=== PATIENT | female | born 1990 | race Hispanic/Latino ===

== ENCOUNTER 2021-12-04 04:21 | Outpatient (CLI) | payer MEDICAID ==
[2021-12-04] MEDS ORDERED: LACTATED RINGERS 500 ML IV ONE (05:06)
[2021-12-04 05:19] LABS: Bilirubin,Urine NEG (Negative); Blood,Urine SM (Negative); Color,Urine Yellow (Yellow); Protein,Urine <15 mg/dL mg/dL (Negative); RBC,Urine < 1.0 /HPF (0.0-6.0); Urobilinogen,Urine < 2.0 mg/dL (<2.0)
--- NOTE | 2021-12-04 07:48 | Ultrasound Report ---
ULTRASOUND OBSTETRIC LIMITED INDICATION / CLINICAL INFORMATION: cervical length. TECHNIQUE: Transabdominal ultrasound imaging. COMPARISON: None available. FINDINGS: HEART RATE (beats per minute): 150 AMNIOTIC FLUID INDEX (cm) = measure PRESENTATION: Cephalic. ADDITIONAL FINDINGS: The cervix is closed and measures 5.3 cm in length. The placenta appears low-lyi ng with possible marginal previa. IMPRESSION: The cervix measures 5.3 cm in length. Question a marginal placenta previa. Signer Name: Darien Mai Jr, MD Signed: 12/04/2021 7:44 AM Workstation Name: [id number]
[2021-12-04 10:51] VITALS: BP 93/51
== END 2021-12-04 07:48 | disposition home or self-care (01) ==
LOC: TRG 04:21 → APU 04:25 → TRG 07:48
PROVIDERS: ATTEND Obstetrics & Gynecology
DX: O47.03 False labor before 37 completed weeks of gestation, third trimester (principal); O99.333 Smoking (tobacco) complicating pregnancy, third trimester; F17.200 Nicotine dependence, unspecified, uncomplicated; Z3A.20 20 weeks gestation of pregnancy
CPT/HCPCS: 59025; 76815; 81001; J7120; 96360

== ENCOUNTER 2022-02-07 11:48 | Outpatient (CLI) | payer MEDICAID ==
[2022-02-07 12:19] VITALS: BP 102/56
[2022-02-07] MEDS ORDERED: LACTATED RINGERS 500 ML IV ONE (13:35)
--- NOTE | 2022-02-07 16:35 | Ultrasound Report ---
US OB limited INDICATION: r/o placental abruption. TECHNIQUE: COMPARISON: None available. FINDINGS: There is no lifting or separation of the placenta. position is cephalic. Placenta is fundal and grade 0. heart rate measures 1 27 bpm. Signer Name: Corwin England MD Signed: 02/07/2022 4:31 PM Workstation Name: [id number]
== END 2022-02-07 13:55 | disposition home or self-care (01) ==
LOC: TRG 11:48 → APU 11:49 → TRG 13:55
PROVIDERS: ATTEND Obstetrics & Gynecology
DX: Z34.93 Encounter for supervision of normal pregnancy, unspecified, third trimester (principal); Z3A.30 30 weeks gestation of pregnancy
CPT/HCPCS: 59025; 76815

== ENCOUNTER 2022-02-22 21:12 | Outpatient (CLI) | payer MEDICAID ==
[2022-02-22] MEDS ORDERED: LACTATED RINGERS 1,000 ML ONE (22:27)
[2022-02-22] MEDS ORDERED: LACTATED RINGERS 500 ML IV ONE (22:31)
[2022-02-22 23:24] VITALS: BP 104/55
[2022-02-22 23:30] LABS: Bilirubin,Urine NEG (Negative); Blood,Urine NEG (Negative); Color,Urine Straw (Yellow); Protein,Urine <15 mg/dL mg/dL (Negative); Urobilinogen,Urine < 2.0 mg/dL (<2.0); WBC,Urine < 1.0 /HPF (0.0-6.0)
[2022-02-22 23:32] LABS: RBC,Urine < 1.0 /HPF (0.0-6.0)
== END 2022-02-23 00:02 | disposition home or self-care (01) ==
LOC: TRG 21:12 → APU 21:18 → TRG 02-23 00:02
PROVIDERS: ATTEND Obstetrics & Gynecology
DX: O62.9 Abnormality of forces of labor, unspecified (principal); Z3A.31 31 weeks gestation of pregnancy; Z87.891 Personal history of nicotine dependence
CPT/HCPCS: 59025; 81001; 96360; J7120

== ENCOUNTER 2022-04-14 19:26 | Inpatient (IN) | payer MEDICAID ==
[2022-04-14] MEDS ORDERED: LACTATED RINGERS 1,000 ML ONE (20:27)
[2022-04-14] MEDS ORDERED: BICITRA ORAL LIQD 30ML PO ONE (21:56)
[2022-04-14] MEDS ORDERED: FAMOTIDINE 20 MG/2 ML INJ IV ONE (21:56)
[2022-04-14] MEDS ORDERED: METOCLOPRAMIDE 10 MG/2 ML INJ IV ONE (21:56)
[2022-04-14] MEDS ORDERED: PROMETHAZINE 25 MG TAB PO PRN (21:58)
[2022-04-14] MEDS ORDERED: BUTORPHANOL 2 MG/1 ML INJ IV PRN (21:58)
[2022-04-14] MEDS ORDERED: OXYTOCIN DRIP 30 UNITS/500 ML BAG IV SCH (22:00)
--- NOTE | 2022-04-14 22:14 | Event Note ---
Date: 04/14/22 31 y/o presented to triage with painful ctx @ 39+ weeks, she is previous c/s and scheduled for a repeat c/s with salpingectomy Saturday. SVE is closed, pt given IVF bolus. Ctx pattern unchanged after IVF hydration. Dr. Thomas consulted, d/t staffing, will plan on c/s in AM. pre-op orders in EMR, orders given for pain medication. RN to call provider if pt has any changes in status.
[2022-04-14] MEDS: LACTATED RINGERS 1,000 ML IV SCH ×2 (23:24→23:58)
[2022-04-14 23:30] LABS: Basophils # (Auto) 0.1 K/mm3 (0.0-0.1); Basophils % (Auto) 0.7 % (0.0-1.8); Eosinophils % (Auto) 0.4 % (0.0-4.3); Hematocrit 34.5 % (30.3-42.9); Hemoglobin 11.2 gm/dl (10.1-14.3); Lymphocytes # (Auto) 2.4 K/mm3 (1.2-5.4); Lymphocytes % (Auto) 19.9 % (13.4-35.0); Mean Corpuscular HGB Conc 33 % (30-34); Mean Corpuscular Volume 91 fl (79-97); Monocytes # (Auto) 0.9 K/mm3 (0.0-0.8); Monocytes % (Auto) 7.3 % (0.0-7.3); Platelet Count 376 K/mm3 (140-440); Red Blood Count 3.81 M/mm3 (3.65-5.03); Red Cell Distribution Width 14.1 % (13.2-15.2)
[2022-04-14] MEDS ORDERED: ePHEDrine SULFATE 50 MG/1 ML INJ IV PRN (23:48)
[2022-04-14] MEDS ORDERED: fentaNYL-BUPIV 2 MCG/ML-0.125% 200 MCG/100 ML BAG EPIDURAL SCH (23:48)
[2022-04-14] MEDS ORDERED: ePHEDrine SULFATE 50 MG/1 ML INJ ONE (23:48)
[2022-04-14] MEDS ORDERED: NALOXONE 0.4 MG/1 ML INJ IV PRN (23:48)
[2022-04-14] MEDS ORDERED: BUPIVACAINE/PF (0.5%) 5 MG/1 ML 10 ML VIAL INFILTRATI ONE (23:53)
--- NOTE | 2022-04-15 00:23 | Anesthesia Day of Surgery ---
Anesthesia Day of Surgery - Day of Surgery Patient Examined: Yes Patient H&P Reviewed: Yes Patient is NPO: Yes Beta Blockers: No Cardiac Clearance: No Pulmonary Clearance: No Joe's Test: N/A
--- NOTE | 2022-04-15 00:23 | Anesthesia Consultation ---
Anesthesia Consult and Med Hx Date of service: 04/14/22 - Airway Anesthetic Teeth Evaluation: Good ROM Head & Neck: Adequate Mental/Hyoid Distance: Adequate Mallampati Class: Class II Intubation Access Assessment: Probably Good - Pulmonary Exam CTA: Yes - Cardiac Exam Cardiac Exam: RRR - Pre-Operative Health Status ASA Pre-Surgery Classification: ASA2 Proposed Anesthetic Plan: Epidural Nerve Block: Dion Tap - Pulmonary Hx Smoking: Yes (Quit 2 weeks ago) Hx Asthma: Yes (As a child) Hx Respiratory Symptoms: No SOB: No COPD: No Home Oxygen Therapy: No Hx Pneumonia: No Hx Sleep Apnea: No - Cardiovascular System Hx Hypertension: No Hx Coronary Artery Disease: No Hx Heart Attack/AMI: No Hx Angina: No Hx Percutaneous Transluminal Coronary Angioplasty (PTCA): No Hx Cardia Arrhythmia: No Hx Pacemaker: No Hx Internal Defibrillator: No Hx Valvular Heart Disease: No Hx Heart Murmur: No Hx Peripheral Vascular Disease: No - Central Nervous System Hx Neuromuscular Disorder: No Hx Seizures: Yes (Possible sz in 2011 but never confirmed) CVA: No Hx Back Pain: No Hx Psychiatric Problems: Yes (PTSD, Borderline Personality Disorder) - Gastrointestinal Hx Ulcer: No Hx Gastroesophageal Reflux Disease: No - Endocrine Hx Renal Disease: No Hx End Stage Renal Disease: No Hx Cirrhosis: No Hx Liver Disease: No Hx Insulin Dependent Diabetes: No Hx Non-Insulin Dependent Diabetes: No Hx Thyroid Disease: No Hx Hypothyroidism: No Hx Hyperthyroidism: No - Hematic Hx Anemia: Yes (Resolved) Hx Sickle Cell Disease: No - Other Systems Hx Alcohol Use: No Hx Substance Use: No Hx Cancer: No Hx Obesity: No
--- NOTE | 2022-04-15 00:24 | Progress Note ---
Labor Epidural - Labor Epidural Start Time: 00:00 Stop Time: 00:08 Performed by:: PADMA VILLAFUERTE Procedure: Epidural Requested for Labor Pain and for pending C/S in the AM. H&P and PT Chart reviewed and consent obtained. Time out performed and the procedure was explained, all questions answered. Patient was placed in a sitting position with monitors applied. The PTs back was prepped and draped in usual sterile fashion. The Skin was localized with 3 mL of 1% lidocaine at L3-L4. A 17-gauge Touhy epidural needle was advanced to BISHOP with saline at 7 cm and no blood/CSF was noted via epidural needle. Epidural catheter was advanced to 12 cm. There was negative aspiration for blood and CSF in the catheter and negative response to a test dose of 3 ml 1.5% lidocaine w/ Epi and a sterile dressing was applied Patient tolerated the procedure well and there were no immediate complications noted.
[2022-04-15] MEDS ORDERED: BICITRA ORAL LIQD 30ML ONE (07:32)
[2022-04-15] MEDS ORDERED: FAMOTIDINE 20 MG/2 ML INJ IV ONE (07:33)
[2022-04-15] MEDS ORDERED: METOCLOPRAMIDE 10 MG/2 ML INJ ONE (07:33)
[2022-04-15] MEDS ORDERED: ceFAZolin/Water 2 GM/20 ML 2 GM/20 ML SYRINGE IV ONE (07:54)
--- NOTE | 2022-04-15 08:12 | History and Physical Report ---
History of Present Illness Date of examination: 04/12/22 History of present illness: Pt presents for preop for repeat c/s with salpingectomy. All risk, benefits and alternatives were d/w pt and questions were addressed and answered. Consents signed and placed on the chart. Pt has been complicated by h/o PVCs. She has seen cardiology and was stated on labetalol 100mg prn symptoms as per pt. Pt has not had any symptoms and has not been taking the labetalol. She griffith have f/u apt scheduled post delivery. She was cleared from a cardiac standpoint as per last notes from cardiology. she also has h/o anxiety but has not been on any meds this . Menstrual History Regularity: regular Menses every: 24 days Duration: 3 LMP: 07/15/2021 LMP reliability: definite LMP character: normal test type: urine test Date: 08/23/2021 BC at conception: none Planned ? no EDC Calculations LMP: 04/21/2022 Past History : 3 Term Births: 2 Premature Births: 0 Living Children: 2 Para: 2 Mult. Births: 0 Prev : 2 Aborta: 0 Elect. Ab: 0 Spont. Ab: 0 Ectopics: 0 # 1 Delivery date: 2006 Weeks Gestation: 39 labor: no Delivery type: Hours of labor: 24+ Anesthesia type: epidural Delivery location: [place] Sex: Male weight: 7-9 Comments: Infant in NICU d/t respiratory distress. # 2 Delivery date: 2010 Weeks Gestation: 39 Delivery type: Anesthesia type: epidural Delivery location: [facility] Sex: Female weight: 6-9 Comments: Scheduled rpt Past Medical History: Reviewed and updated today: Arrhythmia Depression Past Surgical History: Reviewed and updated today: negative Family History Summary: Sister - Has Family History of Coronary Heart Disease - Entered On: 08/23/2021 Social History: Patient is single Smoking History: Patient currently smokes every day. Patient has been counseled to quit. 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 % Sun Exposure: occasionally Family History Risk Factors: Family History of MN in 1 Female Relative Age < 65: no Family History of MN in 1 Male Relative Age < 55: no No Dietary Counseling Reason: pn yes Past Medical History Anesthesia Complications: negative Anemia: negative Autoimmune Disorder: negative Bleeding Disorder: negative Blood Transfusions: negative Breast Disease: negative Diabetes: negative Heart Disease: negative Hypertension: negative Hepatitis/Liver Disease: negative Kidney Disease/UTI: negative Neurologic/Epilepsy/Migraines: negative Phlebitis/Varicosities: negative Psychiatric: negative Pulmonary Disease/Asthma: negative Thyroid Disease: negative Hospitalizations: negative Surgery (Non-trust clerk): negative Abnormal PAP: positive NICOLLE Exposure: negative Infertility: negative Uterine Anomaly: negative Uterine Surgery (not C/S): negative Other Gynecologic Problems: negative Social Hx: Patient is single Smoking History: Patient currently smokes every day. Patient has been counseled to quit. Infection History Hx of STD: HPV HIV Risk Eval: no Hepatitis B Risk Eval: low risk Personal hx. of genital herpes: no Partner hx. of genital herpes: no Rash, Viral, or Febrile illness since last LMP? no Varicella/Chicken Pox Status: Previous Disease TB Risk: no Genetic History Congenital Heart Defect: Mom: no Dad: no Parevz Disease: Mom: no Dad: no Thalassemia Mom: no Dad: no Neural Tube Defect Mom: no Dad: no Down's Syndrome Mom: no Dad: no Da-Sachs Mom: no Dad: no Sickle Cell Disease/Trait Mom: no Dad: no Hemophilia Mom: no Dad: no Muscular Dystrophy Mom: no Dad: no Cystic Fibrosis Mom: no Dad: no [place] Chorea Mom: no Dad: no Mental Retardation Mom: no Dad: no Fragile X Mom: no Dad: no Other Genetic/Chromosomal Disorder Mom: no Dad: no Child w/other defect Mom: no Dad: no Enviromental Exposures Xray Exposure: no Medication, drug, or alcohol use since LMP: no Chemical/Other Exposure: no Exposure to Cat Liter: yes Hx of Parvovirus (Fifth Disease): no Occupational Exposure to Children: none Active Medications (reviewed today): ondansetron 8 mg tablet,disintegrating (ondansetron) 1 tablet by mouth every twelve hours vit-iron fum-folic ac 28 mg iron- 800 mcg tablet ( vit-iron fum-folic ac) 1 tablet by mouth once a day Current Allergies (reviewed today): No known allergies Past History Past Medical History: other (see hpi) Past Surgical History: other (see hpi) L D RN History: other (see hpi) Family/Genetic History: other (see hpi) Social history: other (see hpi) - Obstetrical History Expected Date of Delivery: 04/21/22 Actual Gestation: 38 Week(s) 5 Day(s) : 3 Para: 2 Number of Living Children: 2 Medications and Allergies Allergies Allergy/AdvReac Type Severity Reaction Status Date / Time No Known Allergies Allergy Verified 12/04/21 05:13 Home Medications Medication Instructions Recorded Confirmed Last Taken Type Vit-Fe Fumar-FA [ 1 tab PO QDAY 04/11/22 04/11/22 Unknown History Vitamin] Saccharomyces Boulardii [Daily 250 mg PO DAILY 04/11/22 04/11/22 Unknown History Probiotic] - Physical Exam Cardiovascular: Normal S1, Normal S2 Abdomen: Positive: normal appearance, soft. Negative: distention, tenderness, guarding Genitourinary (Female): Positive: normal external genitalia, normal perenium. Negative: perineal/vulvar lesions Deep Tendon Reflex Grade: Normal +2 - Obstetrical FHR: auscultation normal Cervical Dilatation: 0 Cervical Effacement Percentage: 40 station: -3 Uterine Contraction Pattern: irregular All other labs normal. Assessment and Plan - Patient Problems (1) Previous delivery affecting Status: Acute Plan to address problem: -admit for c/s with salpigectomy -consents signed and place on the chart -all risk, benefits and alternatives d/w pt and questions addressed and answered. (2) Admission for sterilization Status: Acute Past History Past Medical History: other (SEE HPI) Past Surgical History: section, other (SEE HPI) L D RN History: other (SEE HPI) Family/Genetic History: other (SEE HPI) Social history: full code, other (SEE HPI) - Obstetrical History Expected Date of Delivery: 04/12/22 Actual Gestation: 40 Week(s) 3 Day(s) : 3 Para: 2 Hx # Term Pregnancies: 2 Number of Pregnancies: 0 Spontaneous Abortions: 0 Induced : 0 Number of Living Children: 2 Medications and Allergies Allergies Allergy/AdvReac Type Severity Reaction Status Date / Time No Known Allergies Allergy Verified 12/04/21 05:13 Home Medications Medication Instructions Recorded Confirmed Last Taken Type Vit-Fe Fumar-FA [ 1 tab PO QDAY 04/11/22 04/11/22 Unknown History Vitamin] Saccharomyces Boulardii [Daily 250 mg PO DAILY 04/11/22 04/11/22 Unknown History Probiotic] Active Meds: Active Medications Ephedrine Sulfate (Ephedrine Sulfate 50 Mg/1 Ml Inj) 10 mg IV Q2M PRN PRN Reason: Hypotension Lactated Ringer's (Lactated Ringers) 1,000 mls @ 2,250 mls/hr IV PREOP HAYLEY Stop: 04/15/22 22:27 Last Admin: 04/14/22 23:58 Dose: 2,250 mls/hr Oxytocin/Sodium Chloride (Pitocin/Ns 30 Unit/500ml) 30 units in 500 mls @ 0 mls/hr IV TITR HAYLEY; Protocol Fentanyl/Bupivacaine/Sodium Chlor (Fentanyl-Bupiv 2 Mcg/Ml-0.125%) 200 mcg in 100 mls @ 12 mls/hr EPIDURAL TITR HAYLEY; Protocol Last Admin: 04/15/22 00:56 Dose: 12 mls/hr Cefazolin Sodium 2 gm/ Sodium (Chloride) 100 mls @ 200 mls/hr IV ONCE ONE; Protocol Stop: 04/15/22 08:29 Naloxone HCl (Naloxone 0.4 Mg/1 Ml Inj) 0.2 mg IV Q5MIN PRN PRN Reason: Respiratory sedation Promethazine HCl (Promethazine 25 Mg Tab) 25 mg PO Q6H PRN PRN Reason: Nausea And Vomiting - Vital Signs Vital signs: Vital Signs Pulse BP Pulse Ox 93 H 108/56 98 04/14/22 19:44 04/14/22 19:44 04/14/22 19:44 Temp Pulse Resp BP Pulse Ox 98.0 F 121 H 18 92/55 97 04/14/22 23:31 04/15/22 08:02 04/14/22 23:31 04/15/22 07:37 04/15/22 08:02 - Physical Exam Breasts: Cardiovascular: Regular rate, Normal S1, Normal S2 Abdomen: Positive: normal appearance, soft, normal bowel sounds. Negative: distention, tenderness Vulva: both: normal Vagina: Positive: normal moisture. Negative: discharge Cervix: Negative: lesion, discharge Uterus: Positive: normal size, normal contour Adnexa: both: normal Anus/Rectum: Positive: normal perianal skin, heme negative. Negative: rectal mass, hemorrhoids Extremities: Deep Tendon Reflex Grade: Normal +2 - Obstetrical FHR: category 1 Cervical Dilatation: 0 (Per RN) Results Result Diagrams: 04/14/22 23:00 Abnormal lab results 04/14/22 Range/Units 23:00 WBC 12.1 H (4.5-11.0) K/mm3 Prentiss # (Auto) 0.9 H (0.0-0.8) K/mm3 Seg Neutrophils % 71.7 H (40.0-70.0) % Seg Neutrophils # 8.7 H (1.8-7.7) K/mm3 All other labs normal. Assessment and Plan - Patient Problems (1) 39 weeks gestation of Current Visit: Yes Status: Acute (2) Admission for sterilization Current Visit: No Status: Acute Plan to address problem: Patient desires permanent sterilization. She declined temporary contraceptives. She understands the risks of the surgery include bleeding infection possible damage to bowel bladder or ureters. She understands that this surgery would make her permanently sterile. She also understands the approximate 1% failure rate. The patient understands all the above and desires to proceed. (3) Previous delivery affecting Current Visit: No Status: Acute Plan to address problem: Plan to address problem: -admit for c/s with salpigectomy -consents signed and place on the chart -all risk, benefits and alternatives d/w pt and questions addressed and answ ered.
[2022-04-15] MEDS ORDERED: WATER FOR IRRIG STERILE 1,500 ML BOTTLE IR ONE (08:28)
[2022-04-15] MEDS ORDERED: SODIUM CHLORIDE 0.9% IRR 1,500 ML BOTTLE IR ONE (08:28)
[2022-04-15] MEDS ORDERED: ceFAZolin/Water 2 GM/20 ML 2 GM/20 ML SYRINGE IV SCH (09:00)
[2022-04-15] MEDS ORDERED: BUTORPHANOL 2 MG/1 ML INJ IV PRN (09:06)
[2022-04-15] MEDS ORDERED: fentaNYL 100 MCG/2 ML INJ IV PRN (09:06)
[2022-04-15] MEDS ORDERED: ACETAMINOPHEN 325 MG TAB PO PRN (09:06)
[2022-04-15] MEDS ORDERED: PROMETHAZINE 25 MG TAB PO PRN (09:51)
[2022-04-15] MEDS ORDERED: MORPHINE 4 MG/1 ML INJ IV PRN (09:51)
[2022-04-15] MEDS ORDERED: PROMETHAZINE 25 MG RECT SUPP PR PRN (09:51)
[2022-04-15] MEDS ORDERED: ONDANSETRON 4 MG/2 ML INJ IV PRN ×2 (09:51→11:55)
[2022-04-15] MEDS ORDERED: HYDROmorphone 1 MG/1 ML INJ IV PRN ×2 (09:51)
[2022-04-15] MEDS ORDERED: NALOXONE 0.4 MG/1 ML INJ IV PRN ×2 (09:51→11:55)
[2022-04-15] MEDS ORDERED: fentaNYL-BUPIV 2 MCG/ML-0.125% 200 MCG/100 ML BAG EPIDURAL SCH (10:00)
--- NOTE | 2022-04-15 10:01 | Progress Note ---
Regional Anesthesia Block - Regional Anesthesia Block Start Time: :36 Stop Time: :43 Performed By:: PADMA VILLAFUERTE Procedure: During the pre-op interview the patient agreed to and signed a consent for a TAP block for post surgical pain management. After her C/S was completed a time out was performed prior to the start of the procedure. The Trans Abdominal Plane was identified bilaterally via ultrasound. The skin was prepped bilaterally with chlorhexidine and a 22g stimuplex needle was advanced to the area between the internal oblique muscle and the trans abdominal plane. Marcaine 0.25% 30mlwas injected under ultrasound guidance on the left and right side. Negative aspiration every 5mL, There was no change in the patients heart rate or rhythm and the patient tolerated the procedure well. No apparent complications were observed.
--- NOTE | 2022-04-15 10:40 | Operative Report ---
Operative Report Operative Report: Date of procedure: April 15, 2022 Pre-operative diagnosis: Intrauterine at 39 weeks with 2 previous section with persistent contractions and desires permanent sterilization Post-operative diagnosis: Same plus pelvic adhesive disease Procedure name(s): Repeat low transverse section with lysis of adhesions Surgeon: Tato Thomas MD Logging Crew Foreman: Ana Lisa CST Anesthesia: Epidural EBL: Quantitative blood loss 402 cc Complications: None Findings: Patient with thick adhesions between the anterior abdominal wall and anterior uterus. I was unable to visualize the patient's fallopian tubes. Therefore the tubal ligation could not be performed. Patient had a male infant weight 7 pounds 14 ounces Apgars 8 at 1 minute and 9 at 5 minutes. Specimen(s): None Procedure: The patient was brought to the operating room. Her epidural was dosed. She was then placed in left lateral tilt. Prepped and draped in the usual sterile manner. After testing for adequate anesthesia level, a Pfannenstiel incision was made through her previous scar. This incision was taken down to the fascia. The fascia was then nicked in the midline. This incision was extended out laterally with Miles scissors. The fascia was then sharply and bluntly from the underlying rectus muscles. The rectus muscles were densely adhesed to the anterior uterus. The peritoneum was then entered. This incision was spread vertically with care not to damage the bladder below. The bladder flap was then formed sharply and bluntly with Metzenbaum scissors. Bladder blade was placed to displace the bladder. Retractor was placed cephalad but could only expose the lower uterine segment uterus because of the adhesions. A transverse incision was made in lower uterine segment. This incision was extended laterally with the operators fingers. The amniotic sac was then entered bluntly with the rotary swaging machine operator's fingers. The infant was delivered from the vertex position with the assistance of vacuum due to the tight fascial opening. Bulb suction on the mother's abdomen. Cord was double clamped and cut. The infant was then passed to the nursery personnel who were in attendance. The above scores were given by the nursery personnel. The placenta was then bluntly removed. The uterus could not be externalized due to the thick adhesions. The uterus was wiped clean the remaining products. The uterine incision was closed in layers. The first incision was closed in a locking manner using 0 Vicryl. This was followed by imbricating stitch also with 0 Vicryl. This closure was hemostatic. The bladder flap was copiously irrigated and found to be hemostatic. The pelvis was copiously irrigated and found to be hemostatic. The uterus was inspected but could not visualize the fundus nor the fallopian tubes due to the thickened adhesions and made decision not to attempt tubal ligation. Uterine closure inspected. Surgicel was placed along the uterine closure prevent postoperative bleeding. The retractors were removed. The rectus muscles were inspected and found to be hemostatic. The fascia was then closed in a running manner using 0 Vicryl. This incision was hemostatic irrigation Bovie. The skin was reapproximated with 4-0 Vicryl subcuticularly. The patient tolerated procedure well. Her urine was clear. The infant was admitted to the well baby nursery. The patient was accompanied to recovery room in good condition. Instrument count correct x3.
[2022-04-15] MEDS ORDERED: D5W/LACTATED RINGERS 1,000 ML IV SCH (11:55)
[2022-04-15] MEDS ORDERED: MAGNESIUM HYDROXIDE (MOM) ORAL LIQD UDC PO PRN (11:55)
[2022-04-15] MEDS ORDERED: WITCH HAZEL/ GLYCERIN PAD TP PRN (11:55)
[2022-04-15] MEDS ORDERED: SIMETHICONE 80 MG CHEW TAB PO PRN (11:55)
[2022-04-15] MEDS ORDERED: OXYTOCIN DRIP 30 UNITS/500 ML BAG IV SCH (11:55)
[2022-04-15] MEDS ORDERED: LANOLIN/ZINC/DIMETHICONE (LANSINOH) 7 GM TP PRN (11:55)
[2022-04-15] MEDS: KETOROLAC 30 MG/1 ML INJ IV PRN ×2 (12:24→17:15)
[2022-04-15] MEDS: ceFAZolin/NS 1 GM/50 ML 1 GM/50 ML BAG IV SCH ×2 (12:27→19:44)
[2022-04-15] MEDS: oxyCODONE /ACETAMINOPHEN 5-325MG TAB PO PRN ×2 (12:46→21:28)
[2022-04-16] MEDS: KETOROLAC 30 MG/1 ML INJ IV PRN (00:20)
--- NOTE | 2022-04-16 00:41 | Post Anesthesia Evaluation ---
- Post Anesthesia Evaluation Patient Participated: Yes Airway Patent: Yes Stable Respiratory Function: Yes Nausea/Vomiting: No Temp > 96.8F: Yes Pain Manageable: Yes Adequeate Hydration: Yes Anesthesia Complications: No Block Receding Appropriately: Yes Patient on Ventilator: No
[2022-04-16 01:09] LABS: Hematocrit 31.1 % (30.3-42.9)
[2022-04-16] MEDS: oxyCODONE /ACETAMINOPHEN 5-325MG TAB PO PRN ×2 (03:33→11:24)
[2022-04-16] MEDS: IBUPROFEN 600 MG TAB PO PRN ×2 (05:56→16:13)
--- NOTE | 2022-04-16 08:43 | Progress Note ---
Assessment and Plan - Patient Problems (1) delivery delivered Current Visit: Yes Status: Acute Plan to address problem: Continue with care. Continue to encourage ambulation. Advance diet as tolerated. Anticipate discharge home on 04/17. Subjective - Subjective Date of service: 04/16/22 Principal diagnosis: s/p rpt @ term Patient reports: appetite normal, voiding normally, pain well controlled, flatus, ambulating normally [place]: doing well Objective - Vital Signs Latest vital signs: Vital Signs Temp Pulse Resp BP BP Pulse Ox Pulse Ox 04/16/22 07:18 97.8 F 96 H 20 98/60 97 04/16/22 06:56 18 04/16/22 05:56 18 04/16/22 05:03 98.0 F 83 18 93/56 97 04/16/22 04:33 18 04/16/22 03:33 20 04/16/22 00:50 18 04/16/22 00:38 98.5 F 93 H 18 97/65 97 04/16/22 00:20 18 04/15/22 22:28 18 04/15/22 21:28 20 04/15/22 20:36 98.6 F 84 20 92/53 96 04/15/22 20:00 100 04/15/22 16:56 98.1 F 84 18 107/68 97 04/15/22 13:10 98 04/15/22 11:50 98.6 F 99 H 16 96/54 98 04/15/22 10:46 101 H 23 98/53 98 04/15/22 10:30 103 H 11 L 94/59 98 04/15/22 10:15 101 H 13 93/62 99 04/15/22 10:00 105 H 14 100/63 100 04/15/22 09:55 107 H 14 106/58 100 04/15/22 09:50 96 H 22 103/64 100 04/15/22 09:46 98.6 F 85 104/63 100 Intake and Output 04/15/22 04/16/22 04/16/22 22:59 06:59 14:59 Intake Total 1320 240 Output Total 1600 900 Balance -280 -660 Intake: Oral 600 Intake, Free Water 720 240 Output: Urine 1600 900 Indwelling Catheter 1600 Void 900 Other: Total, Intake Amount 240 Total, Output Amount 400 400 # Voids Void 1 - Exam Cardiovascular: Present: Normal S1, Normal S2 Lungs: Present: Clear to auscultation Abdomen: Present: normal appearance, soft, normal bowel sounds Vulva: both: normal Uterus: Present: normal, firm, other (light lochia rubra ) Extremities: Present: normal Incision: Present: normal, dry, intact, other (No s/sx of infection noted. ) - Labs Labs: Abnormal lab results 04/15/22 Range/Units 23:41 Hgb 10.0 L (10.1-14.3) gm/dl
[2022-04-16] MEDS ORDERED: FERROUS SULFATE 325 MG TAB PO SCH (10:00)
[2022-04-16] MEDS ORDERED: PRENATAL VIT27-FE FUMARATE-FOLIC ACID VIT TAB PO SCH (10:00)
[2022-04-17] MEDS: oxyCODONE /ACETAMINOPHEN 5-325MG TAB PO PRN ×2 (01:30→09:44)
[2022-04-17 08:23] VITALS: BP 94/65
--- NOTE | 2022-04-17 08:41 | Discharge Summary ---
Providers - Providers Date of Admission: 04/15/22 09:25 Date of discharge: 04/17/22 Attending physician: PRIYANKA DAS 04/15/22 11:55 Consult to Fusing Machine Feeder [CONS] Routine Reason For Exam: Primary care physician: PRIYANKA DAS Hospitalization Reason for admission: repeat c/s, in labor Condition: Good Pertinent studies: postop H&H 10.0/31.1 Procedures: repeat c/s Hospital course: uncomplicated c/s and postop course Disposition: 01 HOME / SELF CARE / HOMELESS Final Discharge Diagnosis (Prints w/discharge instructions): postop c/s Time spent for discharge: 20 - Discharge Diagnoses (1) delivery delivered Status: Acute Core Measure Documentation - Palliative Care Palliative Care/ Comfort Measures: Not Applicable - Core Measures Any of the following diagnoses?: none Exam - Constitutional Vitals: Temp Pulse Resp BP Pulse Ox 97.8 F 76 20 94/65 98 04/17/22 07:22 04/17/22 07:22 04/17/22 07:22 04/17/22 07:22 04/17/22 08:00 General appearance: Present: no acute distress, well-nourished - EENT Eyes: Present: PERRL ENT: hearing intact, clear oral mucosa - Neck Neck: Present: supple, normal ROM - Respiratory Respiratory effort: normal Respiratory: bilateral: CTA - Cardiovascular Rhythm: regular Heart Sounds: Absent: rub, click - Extremities Extremities: No edema Peripheral Pulses: within normal limits - Abdominal General gastrointestinal: Present: soft, non-tender, non-distended, normal bowel sounds Female genitourinary: Present: normal - Integumentary Integumentary: Present: clear, warm, dry - Musculoskeletal Musculoskeletal: gait normal, strength equal bilaterally - Psychiatric Psychiatric: appropriate mood/affect, intact judgment & insight - Neurologic Neurologic: CNII-XII intact, moves all extremities - Additional findings Additional findings: incision D&I, lochia scant, fundus firm Plan Activity: advance as tolerated Diet: regular Wound: open to air, keep clean and dry Follow up with: PRIYANKA DAS MD [Primary Care Provider] - 7 Days (Congratulations! Please keep your postop appointment in our office next week. Call the office to schedule your son's circumcision for 1 week, bring EMLA cream to his appointment and wait for instructions. Call for any questions or conerns. ) Prescriptions: Lidocain2.5%/Prilocai2.5% [Emla] 5 gm TP ONCE #1 tube Ferrous Sulfate [Feosol 325 MG tab] 325 mg PO BID #60 tablet Ibuprofen [Motrin] 800 mg PO TID PRN #30 tablet PRN Reason: Pain oxyCODONE /ACETAMINOPHEN [Percocet 5/325 mg] 1 tab PO Q6HR PRN #20 tablet PRN Reason: Pain
== END 2022-04-17 09:45 | disposition home or self-care (01) | DRG 766 ==
LOC: TRG 19:26 → APU 19:27 → LD 22:34 → APU 04-15 08:16 → TRG 04-15 09:25 → OB 04-15 11:24
PROVIDERS: ADMIT Obstetrics & Gynecology; ATTEND Obstetrics & Gynecology
PROC: 3E0T3BZ Introduction of Anesthetic Agent into Peripheral Nerves and Plexi, Percutaneous Approach (ICD-10-PCS; principal; 2022-04-15)
PROC: 10D00Z1 Extraction of Products of Conception, Low, Open Approach (ICD-10-PCS; 2022-04-15)
DX: O34.211 Maternal care for low transverse scar from previous cesarean delivery (principal); Z37.0 Single live birth; Z3A.39 39 weeks gestation of pregnancy; O99.334 Smoking (tobacco) complicating childbirth; O99.62 Diseases of the digestive system complicating childbirth; K66.0 Peritoneal adhesions (postprocedural) (postinfection)
CPT/HCPCS: 36415; 85014; 85018; 85025; 86592; 86850; 86900; 86901; G0378; J3490; C1765; J0690; J1885; J2765; J7120